=== PATIENT | male | born 1980 | race Caucasian/White ===

== ENCOUNTER 2023-11-10 15:21 | Inpatient (IN) | payer MEDICAID ==
[~2023-11-10] VITALS: Ht 180.3 cm; Wt 67.9 kg
[2023-11-10] MEDS: diphenhydrAMINE 50 mg/ml inj IV ONE (16:43)
[2023-11-10] MEDS: dicyclomine 10 MG capsule PO ONE (16:44)
[2023-11-10] MEDS: metoclopramide 5 mg/ml inj IV ONE (16:44)
[2023-11-10 17:45] LABS: BASOPHILS # (AUTO) 0.1 X10'3 (0-0.2); BASOPHILS % (AUTO) 0.3 % (0-1); EOSINOPHILS % (AUTO) 0.1 % (0-6); HEMATOCRIT 49.6 % (42.0-52.0); HEMOGLOBIN 16.8 g/dl (14.0-17.9); LYMPHOCYTES # (AUTO) 2.1 X10'3 (1.1-4.8); LYMPHOCYTES % (AUTO) 8.3 % (21-51); MEAN CORPUSCULAR HEMOGLOBIN 31.1 PG (27.0-31.0); MEAN CORPUSCULAR HGB CONC 33.8 g/dL (33.0-36.5); MEAN CORPUSCULAR VOLUME 92.1 FL (78-98); MONOCYTES # (AUTO) 1.4 X10'3 (0-0.9); MONOCYTES % (AUTO) 5.4 % (2-12); NEUTROPHILS # (AUTO) 21.6 X10'3 (1.8-7.7); NEUTROPHILS % (AUTO) 85.9 % (42-75); PLATELET COUNT 299 X10'3 (140-440); RED BLOOD COUNT 5.39 X10'6 (4.70-6.10); RED CELL DISTRIBUTION WIDTH 12.7 % (11.5-14.5)
[2023-11-10 17:49] LABS: BILIRUBIN,URINE SMALL (Neg); CLARITY,URINE CLEAR (Clear); COLOR,URINE YELLOW (Yellow); GLUCOSE, URINE NEGATIVE (Neg); KETONES,URINE >=80 mg/dl (Neg); LEUKOCYTE ESTERASE ,URINE NEGATIVE (Neg); NITRITES, URINE NEGATIVE (Neg); OCCULT BLOOD,URINE NEGATIVE (Neg); PROTEIN,URINE NEGATIVE (Neg); UROBILINOGEN,URINE 0.2 E.U/dL (0.2-1.0)
[2023-11-10 17:50] LABS: WHITE BLOOD COUNT 25.1 X10'3 (4.5-11.0)
[2023-11-10 17:51] LABS: UA COLLECTION TYPE CLN CATCH MIDSTREAM
[2023-11-10 18:10] LABS: ALANINE AMINOTRANSFERASE 13 U/L (12-78); ALBUMIN 4.8 G/DL (3.4-5.0); ALBUMIN/GLOBULIN RATIO 1.4 (1.1-1.5); ALKALINE PHOSPHATASE 66 IU/L (46-116); ANION GAP 20 (8-16); ASPARTATE AMINO TRANSFERASE 11 U/L (10-37); BILIRUBIN,TOTAL 0.6 MG/DL (0.1-1.0); BLOOD UREA NITROGEN 13 MG/DL (7-18); BUN/CREATININE RATIO 11.3 (10.0-20.0); CALCIUM 9.5 MG/DL (8.5-10.1); CHLORIDE 95 MMOL/L (99-107); CREATININE 1.15 MG/DL (0.60-1.10); ETHANOL < 10 MG/DL (<10); GLUCOSE 177 MG/DL (70-104); LIPASE 15 U/L (16-77); SODIUM 139 MMOL/L (135-145); TOTAL CARBON DIOXIDE 23.9 MMOL/L (24-32); TOTAL PROTEIN 8.3 G/DL (6.4-8.2); eCRCL 81 ML/MIN; eGFR 70 ML/MIN
[2023-11-10 18:18] LABS: ANISOCYTOSIS FEW; PLATELET ESTIMATE NORMAL; TOTAL CELLS COUNTED 100
[2023-11-10 18:19] LABS: TEAR DROP CELLS FEW
[2023-11-10 18:32] LABS: URINE AMPHETAMINE SCREEN NEGATIVE (Neg); URINE BARBITUATE SCREEN NEGATIVE (Neg); URINE BENZODIAZEPINES SCREEN NEGATIVE (Neg); URINE CANNABINOID SCREEN NEGATIVE (Neg); URINE COCAINE SCREEN NEGATIVE (Neg); URINE METHADONE SCREEN NEGATIVE (Neg); URINE OPIATE SCREEN NEGATIVE (Neg); URINE PHENCYCLIDINE SCREEN NEGATIVE (Neg)
[2023-11-10 19:36] LABS: APTT 25 SECONDS (22-32); INR 1.1 INR
[2023-11-10 19:46] LABS: PROTHROMBIN TIME 11.3 SECONDS (9.0-12.0)
[2023-11-10] MEDS: vancomycin/NS 1 GM ADD-VANTAGE 250 ML IV SCH (20:48)
[2023-11-10] MEDS ORDERED: magnesium 2GM in 50ml NS 50 ML IV PRN (21:00)
[2023-11-10] MEDS ORDERED: magnesium hydroxide 30ml (MOM) UD suspension PO PRN (21:00)
[2023-11-10] MEDS ORDERED: ondansetron 4mg rapidly disintigrating tab PO PRN (21:00)
[2023-11-10] MEDS ORDERED: diphenhydrAMINE 50 mg/ml inj IV PRN (21:00)
[2023-11-10] MEDS ORDERED: morphine 2 MG/ML inj. syringe IV PRN ×2 (21:00)
[2023-11-10] MEDS ORDERED: potassium Cl 40MEQ/1/2NS 520ml 520 ML IV PRN (21:00)
[2023-11-10] MEDS ORDERED: magnesium Cl slow-release 64mg tablet PO PRN (21:00)
[2023-11-10] MEDS ORDERED: ondansetron/PF 4mg/2ml inj IV PRN (21:00)
[2023-11-10] MEDS ORDERED: bisacodyl 10mg suppository rectal RC PRN (21:00)
[2023-11-10] MEDS ORDERED: HYDROcodone/acetaminophen 5mg/325mg tablet PO PRN (21:00)
[2023-11-10] MEDS ORDERED: potassium Cl 20 mEq SR tablet PO PRN ×2 (21:00)
[2023-11-10] MEDS ORDERED: acetaminophen 650mg rectal suppository RC PRN (21:00)
[2023-11-10] MEDS ORDERED: mag hydrox/Alum hydrox/simeth 30ml oral suspension PO PRN (21:00)
[2023-11-10] MEDS ORDERED: temazepam 15mg capsule PO PRN (21:00)
[2023-11-10] MEDS ORDERED: HYDROcodone/acetaminophen 10/325mg tab PO PRN (21:00)
[2023-11-10] MEDS ORDERED: magnesium 4gm in 100ml NS 100 ML IV PRN (21:00)
[2023-11-10] MEDS ORDERED: acetaminophen 325mg tablet PO PRN ×2 (21:00)
[2023-11-10] MEDS ORDERED: diphenhydrAMINE 25mg capsule PO PRN (21:00)
[2023-11-10 21:34] VITALS: TEMP 98.2
[2023-11-10 22:27] LABS: HEMOGLOBIN A1C 5.4 % (4.5-6.2)
[2023-11-10 22:39] LABS: CREATINE KINASE 189 U/L (39-308); MAGNESIUM 2.1 MG/DL (1.5-2.4); PHOSPHORUS 4.1 MG/DL (2.3-4.5); PRO BRAIN NATRIURETIC PEPTIDE 32 PG/ML (0-125); THYROID STIMULATING HORMONE 0.64 ulU/ml (0.34-4.50)
[2023-11-10] MEDS: ringers solution, lacted 1,000 ML IV SCH (23:30)
[2023-11-11] MEDS: diphenhydrAMINE 50 mg/ml inj IV SCH
[2023-11-11] MEDS: ringers solution, lacted 1,000 ML IV ONE (00:01)
[2023-11-11] MEDS: piperacillin/tazo 3.375gm/50ml 50 ML IV SCH (01:04)
[2023-11-11] MEDS: heparin, porcine 5000 units/ml vial SQ SCH (07:20)
[2023-11-11] MEDS: levoFLOXACIN-Levaquin 750MG/D5 150 ML IV SCH (07:21)
[2023-11-11] MEDS: pantoprazole 40MG/NS 100ML BAG 100 ML IV SCH (07:21)
[2023-11-11] MEDS: K and/or MAG REPLACEMENT MC SCH (08:00)
[2023-11-11] MEDS: docusate sod 100mg capsule PO SCH (08:00)
[2023-11-11] MEDS ORDERED: lactobacillus acidophilus cap PO SCH (08:30)
[2023-11-11] MEDS ORDERED: lactobacillus rhamnosus 10,000 MMU CELLS/CAPSULE PO SCH (08:30)
[2023-11-11] MEDS: metroNIDAZOLE-Flagyl 500mg/NS 100 ML IV SCH (08:49)
[2023-11-11 09:13] VITALS: BP 103/64; PULSE 76; RESP 18; O2SAT 100
[2023-11-11 09:43] LABS: BASOPHILS # (AUTO) 0.1 X10'3 (0-0.2); BASOPHILS % (AUTO) 0.5 % (0-1); EOSINOPHILS # (AUTO) 0.2 X10'3 (0-0.9); EOSINOPHILS % (AUTO) 1.6 % (0-6); HEMATOCRIT 43.1 % (42.0-52.0); HEMOGLOBIN 14.8 g/dl (14.0-17.9); LYMPHOCYTES # (AUTO) 3.1 X10'3 (1.1-4.8); LYMPHOCYTES % (AUTO) 28.7 % (21-51); MEAN CORPUSCULAR HEMOGLOBIN 31.4 PG (27.0-31.0); MEAN CORPUSCULAR HGB CONC 34.4 g/dL (33.0-36.5); MEAN CORPUSCULAR VOLUME 91.5 FL (78-98); MEAN PLATELET VOLUME 7.6 FL (7.4-10.4); MONOCYTES # (AUTO) 0.9 X10'3 (0-0.9); MONOCYTES % (AUTO) 8.5 % (2-12); NEUTROPHILS # (AUTO) 6.6 X10'3 (1.8-7.7); NEUTROPHILS % (AUTO) 60.7 % (42-75); PLATELET COUNT 224 X10'3 (140-440); RED BLOOD COUNT 4.72 X10'6 (4.70-6.10); RED CELL DISTRIBUTION WIDTH 12.8 % (11.5-14.5); WHITE BLOOD COUNT 10.9 X10'3 (4.5-11.0)
[2023-11-11 10:10] LABS: ALANINE AMINOTRANSFERASE 13 U/L (12-78); ALBUMIN 3.7 G/DL (3.4-5.0); ALBUMIN/GLOBULIN RATIO 1.3 (1.1-1.5); ALKALINE PHOSPHATASE 47 IU/L (46-116); ANION GAP 10 (8-16); ASPARTATE AMINO TRANSFERASE 14 U/L (10-37); BILIRUBIN,TOTAL 0.5 MG/DL (0.1-1.0); BLOOD UREA NITROGEN 10 MG/DL (7-18); BUN/CREATININE RATIO 11.1 (10.0-20.0); CALCIUM 8.6 MG/DL (8.5-10.1); CHLORIDE 101 MMOL/L (99-107); CHOL/HDL RATIO 2.5 (0.00-4.99); CHOLESTEROL 92 MG/DL (0-200); GLUCOSE 109 MG/DL (70-104); HDL CHOLESTEROL 37 MG/DL (35-60); LDL CHOLESTEROL 39 MG/DL (50-100); MAGNESIUM 1.8 MG/DL (1.5-2.4); POTASSIUM 3.9 MMOL/L (3.5-5.1); SODIUM 138 MMOL/L (135-145); TOTAL CARBON DIOXIDE 27.3 MMOL/L (24-32); TOTAL PROTEIN 6.6 G/DL (6.4-8.2); TRIGLYCERIDES 44 MG/DL (20-135); eCRCL 104 ML/MIN; eGFR > 90 ML/MIN
[2023-11-11] MEDS ORDERED: ONDA4TAB12 PO (11:14)
[2023-11-11] MEDS ORDERED: METR-159 PO (11:14)
[2023-11-11] MEDS ORDERED: CIPR-259 PO (11:14)
[2023-11-11] MEDS ORDERED: LACT1CAP60 PO (12:08)
[2023-11-12 14:43] LABS: % FREE PSA 24.6 % (.); PROSTATE SPECIFIC AG, SERUM 1.3 ng/mL (0.0-4.0); PSA, FREE 0.32 ng/mL
== END 2023-11-11 11:39 | disposition home or self-care (01) | DRG 249 ==
LOC: ER 15:22 → ED HOLD 21:06
PROVIDERS: ADMIT Family Medicine; ATTEND Internal Medicine
DX: K52.9 Noninfective gastroenteritis and colitis, unspecified (principal); N17.9 Acute kidney failure, unspecified; E86.1 Hypovolemia; N40.0 Benign prostatic hyperplasia without lower urinary tract symptoms; D72.829 Elevated white blood cell count, unspecified; R73.9 Hyperglycemia, unspecified; R74.8 Abnormal levels of other serum enzymes; I87.8 Other specified disorders of veins; R51.9 Headache, unspecified; R53.1 Weakness; K44.9 Diaphragmatic hernia without obstruction or gangrene; R63.4 Abnormal weight loss; Z68.20 Body mass index [BMI] 20.0-20.9, adult; Z72.0 Tobacco use; Z71.6 Tobacco abuse counseling
CPT/HCPCS: 36415; 71045; 74176; 80053; 80061; 80305; 80320; 81003; 82550; 83036; 83605; 83690; 83735; 83880; 83930; 84100; 84145; 84153; 84154; 84443; 84484; 85007; 85025; 85610; 85730; 87040; 99285; C9113; G0378; J1200; J1644; J1956; J2543; J2765; J3370; J3490; J7030; J7120